=== PATIENT | female | born 1985 | race Caucasian/White ===

== ENCOUNTER 2016-07-21 07:39 | Emergency (ER) | payer OTHER ==
[~2016-07-21] VITALS: Ht 167.6 cm; Wt 74.8 kg
[2016-07-21 07:40] VITALS: BP 127/75; PULSE 67; RESP 16; TEMP 97.5; O2SAT 99
--- NOTE | 2016-07-21 07:40 | NUR ---
Patient to ER bed 7 to gown for evaluation. Side rails up. Report given to Aiyana SEYMOUR.
[2016-07-21] MEDS ORDERED: PROCHLORPERAZINE EDISYLATE 10 MG/2 ML VIAL IVP ONE (07:45)
[2016-07-21] MEDS ORDERED: KETOROLAC TROMETHAMINE 30 MG VIAL IVP ONE (07:45)
--- NOTE | 2016-07-21 07:46 | NUR ---
ER Dr. Petersen at bedside examining patient.
--- NOTE | 2016-07-21 07:55 | NUR ---
Patient presents to the emergency department with complaints of 9/10 right sided headache since 0630 this morning. denies n/v but states dizziness. pt noted to have a r knee immobilizer due to procedure completed on knee. did not take anything for the pain, took oxycodone 5-325 last night for pain to knee. did not take anything this morning
[2016-07-21] MEDS ORDERED: DEXAMETHASONE SOD PHOSPHATE 10 MG/ML VIAL IVP ONE (08:00)
[2016-07-21] MEDS ORDERED: NACL 0.9% 1,000 ML IV ONE (08:00)
[2016-07-21 08:12] LABS: BASOPHILS # (AUTO) 0.1 K/uL (0.0-0.2); BASOPHILS % (AUTO) 0.8 % (0.0-2.0); EOSINOPHILS # (AUTO) 0.1 K/uL (0.0-0.4); EOSINOPHILS % (AUTO) 1.4 % (0.0-4.0); HEMATOCRIT 39.3 % (36-48); HEMOGLOBIN 13.6 g/dL (12.0-16.0); LYMPHOCYTES % (AUTO) 28.1 % (20.5-51.5); MEAN CORPUSCULAR HEMOGLOBIN 32 pg (27-31); MEAN CORPUSCULAR HGB CONC 35 % (32-36); MEAN CORPUSCULAR VOLUME 91 fL (79.0-98.0); MONOCYTES # (AUTO) 0.4 K/uL (0.0-1.0); MONOCYTES % (AUTO) 5.1 % (1.7-9.3); NEUTROPHILS # (AUTO) 4.6 K/uL (1.8-7.7); NEUTROPHILS % (AUTO) 64.6 % (40.0-70.0); PLATELET COUNT (AUTO) 296 K/uL (130-430); RED BLOOD CELL COUNT(AUTO) 4.31 MIL/uL (4.2-6.2); RED CELL DISTRIBUTION WIDTH 12.5 % (9.0-15.0); WHITE BLOOD COUNT (AUTO) 7.2 K/uL (4.8-10.8)
--- NOTE | 2016-07-21 08:14 | NUR ---
Per dr cintron, states to hold on medications until after CT scan
[2016-07-21 08:19] LABS: CALCIUM 9.1 mg/dL (8.4-11.0); CREATININE 0.75 mg/dL (0.55-1.30); POTASSIUM 3.8 mmol/L (3.5-5.1)
[2016-07-21 08:24] LABS: ALBUMIN 3.8 g/dL (3.4-4.8); TOTAL BILIRUBIN 0.4 mg/dL (0.0-1.0); TOTAL PROTEIN, SERUM 7.7 g/dL (6.4-8.3)
--- NOTE | 2016-07-21 09:15 | NUR ---
pt to CT via [facility]
--- NOTE | 2016-07-21 10:00 | NUR ---
Pt states pain is better 08/17. refusing toradol. md notified
[2016-07-21] MEDS ORDERED: KETOROLAC TROMETHAMINE 30 MG VIAL ONE (10:04)
--- NOTE | 2016-07-21 10:20 | NUR ---
Patient IV was removed just before MD decided to admit the patient. Dr cintron speaking to pt at bedside regarding POC and results
--- NOTE | 2016-07-21 10:41 | NUR ---
Patient verbalizes severe anxiety after disclosure of diagnosis. Dr. Petersen aware, states he will order anxiolytic.
--- NOTE | 2016-07-21 12:42 | NUR ---
Pt sitting on bed in no acute dsitress, states she is still feeling a little anxious, dr cintorn notified, will enter orders
[2016-07-21] MEDS ORDERED: LORazepam 2 MG/ML VIAL (FOR ER USE) IVP ONE (12:45)
--- NOTE | 2016-07-21 13:30 | NUR ---
Report called to Ramya at [facility] [phone]
--- NOTE | 2016-07-21 13:36 | NUR ---
care endorsed to rico casillas
--- NOTE | 2016-07-21 14:10 | NUR ---
Patient resting quietly. No acute distress noted. Vital signs within normal range.
--- NOTE | 2016-07-21 15:00 | NUR ---
[facility] called and said trasport will be prolonged another 40 minutes. Pt made aware.
[2016-07-21 16:06] VITALS: BP 118/66; PULSE 103; RESP 16; TEMP 97.5; O2SAT 99
--- NOTE | 2016-07-21 16:08 | NUR ---
Patient to be transferred to [facility]. Is being transferred due to higher level of care. Receiving facility has accepting physician and available space. ER physician has signed transfer form. Patient or responsible green party has agreed to transfer and signed form. Patient belongings inventoried and will be sent with patient. Copy of nursing notes, lab reports, EKG, Physicians Orders and X-rays to be sent with patient. Report called to concha by rico SEYMOUR at receiving facility. Receiving physician is luis eduardo. [facility] has been called for transfer. ETA is now.
== END 2016-07-21 16:03 ==
LOC: SED 07:39
DX: R51 Headache (principal)
CPT/HCPCS: 36415; 70450; 80053; 81025; 85025; 93005; 96361; 96374; 96375; 99285; J0780; J1100; J2060; J7030; J1885

== ENCOUNTER 2018-05-19 05:32 | Emergency (ER) | payer OTHER ==
[~2018-05-19] VITALS: Ht 167.6 cm; Wt 76.2 kg
[2018-05-19 05:32] VITALS: BP_SYST 116
--- NOTE | 2018-05-19 05:33 | NUR ---
Patient to ER bed 8. Triaged at bedside by LION Gallagher.
--- NOTE | 2018-05-19 05:40 | NUR ---
Pt complains of cough for one week and started to feel short of breath within the past four days. Pt also complains of pain/burning upon urination. Per pt, she has a hx of asthma. No other injuries/complaints per patient or noted.
[2018-05-19] MEDS ORDERED: ALBU8.5H8 INH (05:53)
--- NOTE | 2018-05-19 06:15 | NUR ---
ER Dr. Ramirez at bedside examining patient.
[2018-05-19] MEDS ORDERED: PROMETHAZINE 6.25 MG/ CODEINE 10 MG/ 5 ML PO ONE (06:30)
[2018-05-19] MEDS ORDERED: LevALBUTEROL HCL 1.25 MG/0.5 ML *CONC.* VIAL.NEB (XOPENEX CONC.) INH ONE (06:30)
[2018-05-19] MEDS ORDERED: PROMETHAZINE 6.25 MG/ CODEINE 10 MG/ 5 ML ONE (06:45)
[2018-05-19 07:21] LABS: BILIRUBIN,URINE NEGATIVE (NEGATIVE); BLOOD, URINE NEGATIVE (NEGATIVE); CLARITY/URINE CLEAR (CLEAR); COLOR,URINE YELLOW (YELLOW); GLUCOSE,URINE NEGATIVE (NEGATIVE); KETONES,URINE NEGATIVE (NEGATIVE); LEUKOCYTE ESTERASE ,URINE NEGATIVE (NEGATIVE); NITRITE, URINE NEGATIVE (NEGATIVE); PROTEIN URINE NEGATIVE (NEGATIVE); UROBILINOGEN,URINE 0.2 (0.2-1.0)
--- NOTE | 2018-05-19 07:42 | NUR ---
Report given to LION Reina. All care endorsed.
--- NOTE | 2018-05-19 07:44 | NUR ---
Blood drawn by lab.
--- NOTE | 2018-05-19 07:50 | NUR ---
Pt reports ease in resp effort. Pt has no acute distress noted.
[2018-05-19 08:07] LABS: BASOPHILS # (AUTO) 0.1 K/uL (0.0-0.2); BASOPHILS % (AUTO) 0.8 % (0.0-2.0); EOSINOPHILS # (AUTO) 0.1 K/uL (0.0-0.4); EOSINOPHILS % (AUTO) 1.3 % (0.0-4.0); HEMATOCRIT 39.1 % (36-48); HEMOGLOBIN 13.5 g/dL (12.0-16.0); LYMPHOCYTES # (AUTO) 2.2 K/uL (1.0-5.5); LYMPHOCYTES % (AUTO) 24.5 % (20.5-51.5); MEAN CORPUSCULAR HEMOGLOBIN 32 pg (27-31); MEAN CORPUSCULAR HGB CONC 35 % (32-36); MEAN CORPUSCULAR VOLUME 92 fL (79.0-98.0); MONOCYTES # (AUTO) 0.6 K/uL (0.0-1.0); MONOCYTES % (AUTO) 6.1 % (1.7-9.3); NEUTROPHILS # (AUTO) 6.1 K/uL (1.8-7.7); NEUTROPHILS % (AUTO) 67.3 % (40.0-70.0); PLATELET COUNT (AUTO) 228 K/uL (130-430); RED BLOOD CELL COUNT(AUTO) 4.25 MIL/uL (4.2-6.2); RED CELL DISTRIBUTION WIDTH 12.8 % (9.0-15.0); WHITE BLOOD COUNT (AUTO) 9.1 K/uL (4.8-10.8)
[2018-05-19 08:20] LABS: CALCIUM 8.7 mg/dL (8.4-11.0); CREATININE 0.66 mg/dL (0.55-1.30); POTASSIUM 3.9 mmol/L (3.5-5.1)
[2018-05-19 08:25] LABS: ALBUMIN 3.1 g/dL (3.4-4.8); PROTHROMBIN TIME 9.9 SECS (9.5-12.5); TOTAL BILIRUBIN 0.4 mg/dL (0.0-1.0)
[2018-05-19 09:15] VITALS: BP_SYST 118
--- NOTE | 2018-05-19 09:15 | NUR ---
Patient given written and verbal discharge instructions and verbalizes understanding. ER MD discussed with patient the results and treatment provided. Patient in stable condition. ID arm band removed. Rx of prednisone given. Patient educated on pain management and to follow up with PMD. Pain Scale 0. Opportunity for questions provided and answered. Medication side effect fact sheet provided.
== END 2018-05-19 09:15 | disposition home or self-care (01) ==
LOC: SED 05:32
DX: R07.89 Other chest pain (principal); J45.909 Unspecified asthma, uncomplicated; R05 Cough
CPT/HCPCS: 36415; 71045; 80053; 81003; 84484; 85025; 85610-TC; 85730-TC; 93005; 94640; 99284

== ENCOUNTER 2019-06-05 05:01 | Emergency (ER) | payer OTHER ==
[~2019-06-05] VITALS: Ht 167.6 cm; Wt 77.1 kg
[~2019-06-05 05:01] MED LIST: ALBU8.5H8 INH
[2019-06-05 05:05] VITALS: BP_SYST 122
--- NOTE | 2019-06-05 05:10 | NUR ---
Patient to ER bed 4 to gown for evaluation. Side rails up. Report given to Shay SEYMOUR.
--- NOTE | 2019-06-05 05:18 | NUR ---
ER at bedside examining patient.
--- NOTE | 2019-06-05 05:20 | NUR ---
33 y/o female presents to ED w/ c/o of cough and wheezing since 06/02. Pt states she has a Hx of Asthma, but inhaler is not working at this time. Pt denies any N/V/D, no fever, chills, or body aches. Will continue to monitor.
[2019-06-05] MEDS ORDERED: IPRATROPIUM BROM 0.5 MG/2.5 ML VIAL.NEB (ATROVENT) INH ONE ×2 (05:30→05:38)
[2019-06-05] MEDS ORDERED: ALBUTEROL SULFATE 0.083% 2.5 MG/3 ML VIAL.NEB INH ONE ×2 (05:30→05:38)
[2019-06-05 06:08] VITALS: BP_SYST 126
--- NOTE | 2019-06-05 06:08 | NUR ---
Patient given written and verbal discharge instructions and verbalizes understanding. ER MD discussed with patient the results and treatment provided. Patient in stable condition. ID arm band removed. IV catheter removed intact and dressing applied, no active bleeding. Rx of Prednisone and Azythromycin given. Patient educated on pain management and to follow up with PMD. Pain Scale 0/10. Opportunity for questions provided and answered. Medication side effect fact sheet provided.
== END 2019-06-05 06:08 | disposition home or self-care (01) ==
LOC: SED 05:01
DX: J45.909 Unspecified asthma, uncomplicated (principal)
CPT/HCPCS: 71045; 81025; 94640; 99283; J7030; J7613

== ENCOUNTER 2020-09-01 19:14 | Emergency (ER) | payer OTHER ==
[~2020-09-01] VITALS: Ht 167.6 cm; Wt 77.1 kg
[2020-09-01 19:25] VITALS: BP_SYST 125
[2020-09-01] MEDS ORDERED: HYDROcodone/ACETAMIN 5-325 MG TAB (NORCO/ VICODIN) PO ONE (20:00)
[2020-09-01] MEDS ORDERED: CYCL-10 PO (20:49)
[2020-09-01 20:55] VITALS: BP_SYST 126
== END 2020-09-01 20:55 | disposition home or self-care (01) ==
LOC: SED 19:14
DX: M54.6 Pain in thoracic spine (principal)
CPT/HCPCS: 73030; 99283

== ENCOUNTER 2020-09-24 01:51 | Emergency (ER) | payer OTHER ==
[~2020-09-24] VITALS: Ht 167.6 cm; Wt 77.1 kg
[~2020-09-24 01:51] MED LIST changes: +CYCL-10 PO
[2020-09-24 02:16] VITALS: BP_SYST 117
[2020-09-24 03:37] LABS: BASOPHILS # (AUTO) 0.1 K/uL (0.0-0.2); BASOPHILS % (AUTO) 0.8 % (0.0-2.0); EOSINOPHILS # (AUTO) 0.1 K/uL (0.0-0.4); EOSINOPHILS % (AUTO) 0.8 % (0.0-4.0); HEMATOCRIT 40.8 % (36-48); HEMOGLOBIN 13.8 g/dL (12.0-16.0); LYMPHOCYTES # (AUTO) 2.3 K/uL (1.0-5.5); LYMPHOCYTES % (AUTO) 20.7 % (20.5-51.5); MEAN CORPUSCULAR HEMOGLOBIN 32 pg (27-31); MEAN CORPUSCULAR HGB CONC 34 % (32-36); MEAN CORPUSCULAR VOLUME 96 fL (79.0-98.0); MONOCYTES # (AUTO) 0.7 K/uL (0.0-1.0); MONOCYTES % (AUTO) 5.8 % (1.7-9.3); NEUTROPHILS # (AUTO) 8.1 K/uL (1.8-7.7); NEUTROPHILS % (AUTO) 71.9 % (40.0-70.0); PLATELET COUNT (AUTO) 233 K/uL (130-430); RED BLOOD CELL COUNT(AUTO) 4.27 MIL/uL (4.2-6.2); RED CELL DISTRIBUTION WIDTH 13.5 % (9.0-15.0); WHITE BLOOD COUNT (AUTO) 11.2 K/uL (4.8-10.8)
[2020-09-24 03:38] LABS: CALCIUM 8.6 mg/dL (8.4-11.0); CREATININE 0.76 mg/dL (0.55-1.30); POTASSIUM 3.7 mmol/L (3.5-5.1)
[2020-09-24 03:44] LABS: ALBUMIN 3.7 g/dL (3.4-4.8); TOTAL BILIRUBIN 0.3 mg/dL (0.0-1.0)
[2020-09-24 04:32] LABS: ERYTHROCYTE SEDIMENTATION RATE 5 MM/HR (0-20)
[2020-09-24] MEDS ORDERED: CEFU250T85 PO (05:04)
[2020-09-24] MEDS ORDERED: PRED20TA PO (05:04)
[2020-09-24 05:30] VITALS: BP_SYST 125
== END 2020-09-24 05:30 | disposition home or self-care (01) ==
LOC: SED 01:51
DX: R22.1 Localized swelling, mass and lump, neck (principal); F17.290 Nicotine dependence, other tobacco product, uncomplicated
CPT/HCPCS: 36415; 70360-TC; 71045; 80053; 85025; 85651-TC; 99284

== ENCOUNTER 2021-01-30 12:57 | Emergency (ER) | payer OTHER, SELFPAY ==
[~2021-01-30] VITALS: Ht 167.6 cm; Wt 77.1 kg
[~2021-01-30 12:57] MED LIST changes: +CEFU250T85 PO; +PRED20TA PO
[2021-01-30 13:20] VITALS: BP_SYST 120
--- NOTE | 2021-01-30 13:25 | NUR ---
Patient to tent2 to gown for evaluation. Side rails up.
--- NOTE | 2021-01-30 14:00 | NUR ---
UNUABLE TO LOCATE PT IN [place] AREA
[2021-01-30 20:24] VITALS: BP_SYST 120
== END 2021-01-30 20:24 | disposition left against medical advice (07) ==
LOC: SED 12:57
DX: R06.02 Shortness of breath (principal); Z53.21 Procedure and treatment not carried out due to patient leaving prior to being seen by health care provider

== ENCOUNTER 2023-11-12 18:55 | Emergency (ER) | payer OTHER ==
[~2023-11-12] VITALS: Ht 167.6 cm; Wt 80.7 kg
[~2023-11-12 18:55] MED LIST changes: -CYCL-10 PO; +CYCL10TA24 PO
[2023-11-12 19:31] VITALS: BP_SYST 122; PULSE 66; RESP 18; TEMP 98.1; O2SAT 98
[2023-11-12] MEDS: traMADol HCL HCL 50 MG TABLET (ULTRAM) PO ONE (21:00)
[2023-11-12] MEDS ORDERED: TRAM50TA2 PO (21:59)
[2023-11-12 22:06] VITALS: BP_SYST 111; PULSE 55; RESP 15; TEMP 97.8; O2SAT 96
== END 2023-11-12 22:06 | disposition home or self-care (01) ==
LOC: SED 18:55
DX: S76.101A Unspecified injury of right quadriceps muscle, fascia and tendon, initial encounter (principal); Z88.8 Allergy status to other drugs, medicaments and biological substances; Z79.899 Other long term (current) drug therapy; Z79.2 Long term (current) use of antibiotics; W51.XXXA Accidental striking against or bumped into by another person, initial encounter; Y93.64 Activity, baseball; Y92.89 Other specified places as the place of occurrence of the external cause; Y99.8 Other external cause status
CPT/HCPCS: 73564; 99283